=== PATIENT | male | born 1930 | race Caucasian/White ===

== ENCOUNTER 2019-04-13 18:58 | Inpatient (IN) ==
[2019-04-13 19:39] LABS: Basophils # 0.1 10*3/uL (0.0-0.2); Basophils % 0.5 % (0.0-0.8); Eosinophils % 0.4 % (0.00-10.9); Hematocrit 43.6 VOL% (42.0-52.0); Hemoglobin 14.6 GM/DL (14.0-18.0); Immature Granulocytes % 0.2 %; Immature Granulocytes Absolute 0.02 #; Lymphocytes % 10.7 % (21.2-54.2); Mean Corpuscular HGB Conc 33.5 GM/DL (32-36); Mean Corpuscular Volume 92.4 FL (87-102); Mean Platelet Volume 10.4 FL (9.6-12.0); Monocytes % 5.5 % (1.7-12.7); Neutrophils % 82.7 % (38.7-73.9); Platelet Count 211 T/CUMM (130-400); Red Blood Count 4.72 MC/CUMM (3.8-5.5); Red Cell Distribution Width 13.2 % (9.3-17.3); White Blood Count 9.3 T/CUMM (4-12)
[2019-04-13 19:53] LABS: INR 1.1; PT Patient Result 11.4 SECS (9.6-12.2)
[2019-04-13 20:03] LABS: Apearance,Urine CLEAR (Clear); Bilirubin,Urine Negative (Negative); Blood, Urine Small mg/dL (Negative); Glucose,Urine (UA) 150 mg/dL (Negative); Ketones,Urine 5 mg/dL (Negative); Mucus,Urine Occasional /LPF (Occasional); Nitrite,Urine Negative (Negative); Protein,Urine Negative; RBC,Urine 9 /HPF (0-4); Urine Color Yellow (Yellow); Urine Specific Gravity 1.014 (1.001-1.035); Urine Urobilinogen < 2.0 EU/DL (0.2-1.0); WBC,Urine <1 /HPF (0-6)
[2019-04-13 20:06] LABS: Albumin 3.8 G/DL (3.4-5.0); Bilirubin,Total 0.5 MG/DL (0.2-1.0); Calcium 9.2 MG/DL (8.5-10.1); Osmolality,Calculated 283.5 MOS/KG (273-304); Total Protein 7.5 G/DL (6.4-8.3)
[2019-04-13] MEDS ORDERED: MECLIZINE 25 MG TABLET PO STA (21:29)
[2019-04-13] MEDS ORDERED: hydrALAZINE 20 MG/1 ML VIAL IV STA (21:31)
[2019-04-13] MEDS ORDERED: PANTOPRAZOLE 40 MG VIAL IV ONE (23:04)
[2019-04-13] MEDS ORDERED: PANTOPRAZOLE 40 MG VIAL IV STA (23:04)
[2019-04-13] MEDS ORDERED: hydrALAZINE 20 MG/1 ML VIAL IV PRN (23:07)
[2019-04-13] MEDS ORDERED: SODIUM CHLORIDE 0.9% 500 ML IV ONE (23:07)
[2019-04-13] MEDS ORDERED: guaiFENesin/DM ER 600-30 MG TABLET PO PRN (23:07)
[2019-04-13] MEDS ORDERED: diphenhydrAMINE CAP 25 MG CAPSULE PO PRN (23:07)
[2019-04-13] MEDS ORDERED: ACETAMINOPHEN 325 MG TABLET PO PRN (23:07)
[2019-04-14] MEDS: ONDANSETRON 4 MG/2 ML VIAL IV PRN (01:29)
[2019-04-14 05:12] LABS: Albumin 2.9 G/DL (3.4-5.0); Bilirubin,Total 0.6 MG/DL (0.2-1.0); Calcium 8.8 MG/DL (8.5-10.1); Total Protein 6.4 G/DL (6.4-8.3)
[2019-04-14] MEDS: MECLIZINE 25 MG TABLET PO SCH ×3 (12:35→21:33)
[2019-04-14] MEDS ORDERED: methylPREDNISolone SOD SUC 125 MG/2 ML VIAL IV ONE (15:41)
[2019-04-14] MEDS: SODIUM CHLORIDE 0.9% 1,000 ML IV SCH (18:36)
[2019-04-14] MEDS ORDERED: DABIGATRAN 150 MG CAPSULE PO SCH (21:00)
[2019-04-15] MEDS: SODIUM CHLORIDE 0.9% 1,000 ML IV SCH ×2 (03:39→12:48)
[2019-04-15 05:31] LABS: Basophils % 0.1 % (0.0-0.8); Hematocrit 43.1 VOL% (42.0-52.0); Hemoglobin 13.8 GM/DL (14.0-18.0); Immature Granulocytes % 0.4 %; Immature Granulocytes Absolute 0.03 #; Lymphocytes # 0.5 10*3/uL (1.4-4.0); Lymphocytes % 6.8 % (21.2-54.2); Mean Corpuscular Volume 96.6 FL (87-102); Mean Platelet Volume 10.9 FL (9.6-12.0); Monocytes % 1.1 % (1.7-12.7); Neutrophils % 91.6 % (38.7-73.9); Platelet Count 194 T/CUMM (130-400); Red Blood Count 4.46 MC/CUMM (3.8-5.5); Red Cell Distribution Width 13.4 % (9.3-17.3); White Blood Count 7.6 T/CUMM (4-12)
[2019-04-15 05:51] LABS: Calcium 8.8 MG/DL (8.5-10.1); Osmolality,Calculated 284.4 MOS/KG (273-304)
[2019-04-15 06:57] LABS: Lymphocytes 9 % (20-55); Platelet Estimate Adequate; Segmented Neutrophils 89 % (50-85); Total Cells Counted 100
[2019-04-15 08:08] LABS: Risk Ratio 3.19; VLDL CHOLESTEROL 9.2 MG/DL
[2019-04-15] MEDS: CHOLECALCIFEROL 400 UNIT TABLET PO SCH (09:07)
[2019-04-15] MEDS: SELENIUM 200 MCG TABLET PO SCH (09:07)
[2019-04-15] MEDS: MECLIZINE 25 MG TABLET PO SCH ×4 (09:07→21:20)
[2019-04-15] MEDS: ASPIRIN EC 81 MG TABLET PO SCH (09:09)
[2019-04-15] MEDS: APIXABAN 5 MG TABLET PO SCH ×2 (09:09→21:20)
[2019-04-15] MEDS: AMIODARONE 200 MG TABLET PO SCH (09:09)
[2019-04-15] MEDS: lisinopriL 20 MG TABLET PO SCH (09:09)
[2019-04-15] MEDS: ASCORBIC ACID 500 MG TABLET PO SCH (09:10)
[2019-04-15] MEDS: ROSUVASTATIN 20 MG TABLET PO SCH (21:20)
[2019-04-16] MEDS: ONDANSETRON 4 MG/2 ML VIAL IV PRN ×2 (02:43→08:40)
[2019-04-16 05:32] LABS: Basophils # 0.1 10*3/uL (0.0-0.2); Basophils % 0.4 % (0.0-0.8); Eosinophils # 0.1 10*3/uL (0.0-0.87); Eosinophils % 0.4 % (0.00-10.9); Hematocrit 41.4 VOL% (42.0-52.0); Hemoglobin 13.1 GM/DL (14.0-18.0); Immature Granulocytes % 0.3 %; Immature Granulocytes Absolute 0.04 #; Lymphocytes # 1.7 10*3/uL (1.4-4.0); Lymphocytes % 13.4 % (21.2-54.2); Mean Corpuscular HGB Conc 31.6 GM/DL (32-36); Mean Platelet Volume 10.4 FL (9.6-12.0); Monocytes % 9.8 % (1.7-12.7); Neutrophils % 75.7 % (38.7-73.9); Platelet Count 226 T/CUMM (130-400); Red Blood Count 4.27 MC/CUMM (3.8-5.5); Red Cell Distribution Width 13.5 % (9.3-17.3); White Blood Count 12.8 T/CUMM (4-12)
[2019-04-16 05:49] LABS: Calcium 8.5 MG/DL (8.5-10.1); Osmolality,Calculated 286.4 MOS/KG (273-304)
[2019-04-16] MEDS: CHOLECALCIFEROL 400 UNIT TABLET PO SCH (08:42)
[2019-04-16] MEDS: ASCORBIC ACID 500 MG TABLET PO SCH ×2 (08:42→21:15)
[2019-04-16] MEDS: lisinopriL 20 MG TABLET PO SCH (08:43)
[2019-04-16] MEDS: AMIODARONE 200 MG TABLET PO SCH (08:43)
[2019-04-16] MEDS: APIXABAN 5 MG TABLET PO SCH ×2 (08:43→21:16)
[2019-04-16] MEDS: ASPIRIN EC 81 MG TABLET PO SCH (08:43)
[2019-04-16] MEDS: MECLIZINE 25 MG TABLET PO SCH ×4 (08:45→21:16)
[2019-04-16] MEDS: SELENIUM 200 MCG TABLET PO SCH (08:45)
[2019-04-16] MEDS ORDERED: ACETAMINOPHEN/CODEINE 120-12 MG/5 ML 12.5 ML UDCUP PO PRN (11:43)
[2019-04-16 16:06] LABS: Apearance,Urine CLEAR (Clear); Bilirubin,Urine Negative (Negative); Blood, Urine Negative (Negative); Glucose,Urine (UA) Negative (Negative); Hyaline Casts,Urine 1 /LPF (0-3); Ketones,Urine Negative (Negative); Mucus,Urine Occasional /LPF (Occasional); Nitrite,Urine Negative (Negative); Protein,Urine Negative; Squamous Epithelial Cell,Urine Occasional /HPF (0-10); Urine Color Yellow (Yellow); Urine Specific Gravity 1.016 (1.001-1.035); Urine Urobilinogen < 2.0 EU/DL (0.2-1.0); WBC,Urine 8 /HPF (0-6)
[2019-04-16] MEDS ORDERED: POTASSIUM CHLORIDE 20 MEQ TABLET PO ONE (20:28)
[2019-04-16] MEDS: ROSUVASTATIN 20 MG TABLET PO SCH (21:15)
[2019-04-17] MEDS: ASPIRIN EC 81 MG TABLET PO SCH (08:19)
[2019-04-17] MEDS: CHOLECALCIFEROL 400 UNIT TABLET PO SCH (08:19)
[2019-04-17] MEDS: lisinopriL 20 MG TABLET PO SCH (08:19)
[2019-04-17] MEDS: ASCORBIC ACID 500 MG TABLET PO SCH (08:20)
[2019-04-17] MEDS: APIXABAN 5 MG TABLET PO SCH (08:20)
[2019-04-17] MEDS: MECLIZINE 25 MG TABLET PO SCH ×3 (08:21→16:31)
[2019-04-17] MEDS: SELENIUM 200 MCG TABLET PO SCH (08:21)
[2019-04-17] MEDS: AMIODARONE 200 MG TABLET PO SCH (08:21)
[2019-04-17 08:46] LABS: Basophils % 0.3 % (0.0-0.8); Eosinophils # 0.1 10*3/uL (0.0-0.87); Eosinophils % 0.5 % (0.00-10.9); Hematocrit 42.4 VOL% (42.0-52.0); Hemoglobin 13.3 GM/DL (14.0-18.0); Immature Granulocytes % 0.6 %; Immature Granulocytes Absolute 0.08 #; Lymphocytes # 1.2 10*3/uL (1.4-4.0); Lymphocytes % 9.3 % (21.2-54.2); Mean Corpuscular HGB Conc 31.4 GM/DL (32-36); Mean Corpuscular Volume 97.2 FL (87-102); Mean Platelet Volume 10.1 FL (9.6-12.0); Monocytes % 9.3 % (1.7-12.7); Platelet Count 215 T/CUMM (130-400); Red Blood Count 4.36 MC/CUMM (3.8-5.5); Red Cell Distribution Width 13.2 % (9.3-17.3); White Blood Count 13.2 T/CUMM (4-12)
[2019-04-17 08:59] LABS: Calcium 8.3 MG/DL (8.5-10.1); Osmolality,Calculated 284.4 MOS/KG (273-304)
[2019-04-17] MEDS ORDERED: cefTRIAXone 1,000 MG in SYRINGE 1 EACH IV SCH (12:00)
[2019-04-17 16:10] VITALS: BP 117/54
== END 2019-04-17 17:55 | DRG 65 ==
LOC: EDUNIT# → N.ED 18:58 → N.EDINP 18:58 → N.TELES 22:52 → SUATTDRO 04-15 07:45
PROVIDERS: ADMIT Internal Medicine; ATTEND Internal Medicine

== ENCOUNTER 2019-04-19 13:43 | Observation (INO) ==
[2019-04-19 15:23] LABS: Apearance,Urine Slightly Hazy (Clear); Bilirubin,Urine Negative (Negative); Blood, Urine Small mg/dL (Negative); Glucose,Urine (UA) Negative (Negative); Hyaline Casts,Urine 36 /LPF (0-3); Ketones,Urine 5 mg/dL (Negative); Mucus,Urine Moderate /LPF (Occasional); Nitrite,Urine Negative (Negative); Protein,Urine Negative; RBC,Urine 28 /HPF (0-4); Squamous Epithelial Cell,Urine Occasional /HPF (0-10); Urine Color Dark Yellow (Yellow); WBC,Urine 9 /HPF (0-6)
[2019-04-19 15:49] LABS: Albumin 2.6 G/DL (3.4-5.0); Calcium 8.9 MG/DL (8.5-10.1); Osmolality,Calculated 288.5 MOS/KG (273-304); Total Protein 6.4 G/DL (6.4-8.3)
[2019-04-19] MEDS ORDERED: ACETAMINOPHEN 325 MG TABLET PO PRN (16:27)
[2019-04-19] MEDS ORDERED: ONDANSETRON 4 MG/2 ML VIAL IV PRN (16:27)
[2019-04-19] MEDS: SIMVASTATIN 20 MG TABLET PO SCH (20:39)
[2019-04-19] MEDS: APIXABAN 5 MG TABLET PO SCH (20:39)
[2019-04-20 05:03] LABS: Basophils % 0.3 % (0.0-0.8); Eosinophils # 0.1 10*3/uL (0.0-0.87); Hematocrit 34.9 VOL% (42.0-52.0); Hemoglobin 11.5 GM/DL (14.0-18.0); Immature Granulocytes % 0.4 %; Immature Granulocytes Absolute 0.04 #; Lymphocytes # 0.8 10*3/uL (1.4-4.0); Lymphocytes % 8.3 % (21.2-54.2); Mean Corpuscular Volume 94.6 FL (87-102); Mean Platelet Volume 10.6 FL (9.6-12.0); Platelet Count 218 T/CUMM (130-400); Red Blood Count 3.69 MC/CUMM (3.8-5.5); Red Cell Distribution Width 13.1 % (9.3-17.3)
[2019-04-20 05:38] LABS: Albumin 2.4 G/DL (3.4-5.0); Bilirubin,Total 1.5 MG/DL (0.2-1.0); Calcium 8.7 MG/DL (8.5-10.1); Osmolality,Calculated 292.1 MOS/KG (273-304); Total Protein 5.9 G/DL (6.4-8.3)
[2019-04-20] MEDS: cefTRIAXone 1,000 MG in SYRINGE 1 EACH IV SCH (10:16)
[2019-04-20] MEDS: lisinopriL 20 MG TABLET PO SCH (10:20)
[2019-04-20] MEDS: PANTOPRAZOLE 40 MG TABLET PO SCH (10:20)
[2019-04-20] MEDS: AMIODARONE 200 MG TABLET PO SCH (10:20)
[2019-04-20] MEDS: SPIRONOLACTONE 25 MG TABLET PO SCH (10:20)
[2019-04-20] MEDS: APIXABAN 5 MG TABLET PO SCH ×2 (10:20→20:25)
[2019-04-20] MEDS: ASPIRIN EC 81 MG TABLET PO SCH (10:20)
[2019-04-20] MEDS: SELENIUM 200 MCG TABLET PO SCH (10:20)
[2019-04-20] MEDS: CHOLECALCIFEROL 400 UNIT TABLET PO SCH (10:21)
[2019-04-20] MEDS: ASCORBIC ACID 500 MG TABLET PO SCH (10:21)
[2019-04-20] MEDS: SIMVASTATIN 20 MG TABLET PO SCH (20:26)
[2019-04-21 04:37] LABS: Basophils # 0.1 10*3/uL (0.0-0.2); Basophils % 0.5 % (0.0-0.8); Eosinophils # 0.2 10*3/uL (0.0-0.87); Eosinophils % 1.9 % (0.00-10.9); Hematocrit 40.7 VOL% (42.0-52.0); Hemoglobin 12.9 GM/DL (14.0-18.0); Immature Granulocytes % 0.5 %; Immature Granulocytes Absolute 0.05 #; Lymphocytes # 1.5 10*3/uL (1.4-4.0); Lymphocytes % 13.3 % (21.2-54.2); Mean Corpuscular HGB Conc 31.7 GM/DL (32-36); Mean Corpuscular Volume 97.1 FL (87-102); Mean Platelet Volume 10.4 FL (9.6-12.0); Monocytes % 13.4 % (1.7-12.7); Neutrophils % 70.4 % (38.7-73.9); Platelet Count 264 T/CUMM (130-400); Red Blood Count 4.19 MC/CUMM (3.8-5.5); Red Cell Distribution Width 13.2 % (9.3-17.3); White Blood Count 11.1 T/CUMM (4-12)
[2019-04-21 05:14] LABS: Albumin 2.8 G/DL (3.4-5.0); Bilirubin,Total 1.7 MG/DL (0.2-1.0); Osmolality,Calculated 289.1 MOS/KG (273-304); Total Protein 6.7 G/DL (6.4-8.3)
[2019-04-21] MEDS: ASCORBIC ACID 500 MG TABLET PO SCH (09:37)
[2019-04-21] MEDS: lisinopriL 20 MG TABLET PO SCH (09:37)
[2019-04-21] MEDS: SELENIUM 200 MCG TABLET PO SCH (09:37)
[2019-04-21] MEDS: APIXABAN 5 MG TABLET PO SCH ×2 (09:37→20:55)
[2019-04-21] MEDS: AMIODARONE 200 MG TABLET PO SCH (09:38)
[2019-04-21] MEDS: CHOLECALCIFEROL 400 UNIT TABLET PO SCH (09:38)
[2019-04-21] MEDS: PANTOPRAZOLE 40 MG TABLET PO SCH (09:38)
[2019-04-21] MEDS: SPIRONOLACTONE 25 MG TABLET PO SCH (09:38)
[2019-04-21] MEDS: cefTRIAXone 1,000 MG in SYRINGE 1 EACH IV SCH (09:38)
[2019-04-21] MEDS: ASPIRIN EC 81 MG TABLET PO SCH (09:38)
[2019-04-21] MEDS: SIMVASTATIN 20 MG TABLET PO SCH (20:55)
[2019-04-22 04:20] LABS: Osmolality,Calculated 288.3 MOS/KG (273-304)
[2019-04-22] MEDS: SPIRONOLACTONE 25 MG TABLET PO SCH (09:48)
[2019-04-22] MEDS: ASPIRIN EC 81 MG TABLET PO SCH (09:48)
[2019-04-22] MEDS: lisinopriL 20 MG TABLET PO SCH (09:48)
[2019-04-22] MEDS: SELENIUM 200 MCG TABLET PO SCH (09:48)
[2019-04-22] MEDS: PANTOPRAZOLE 40 MG TABLET PO SCH (09:49)
[2019-04-22] MEDS: POTASSIUM CHLORIDE 20 MEQ TABLET PO PRN ×5 (09:49→22:22)
[2019-04-22] MEDS: AMIODARONE 200 MG TABLET PO SCH (09:50)
[2019-04-22] MEDS: APIXABAN 5 MG TABLET PO SCH ×2 (09:50→20:22)
[2019-04-22] MEDS: cefTRIAXone 1,000 MG in SYRINGE 1 EACH IV SCH (09:50)
[2019-04-22] MEDS: CHOLECALCIFEROL 400 UNIT TABLET PO SCH (09:59)
[2019-04-22] MEDS: ASCORBIC ACID 500 MG TABLET PO SCH (09:59)
[2019-04-22] MEDS: POLYETHYLENE GLYCOL POWDER 17 GM PACK PO SCH ×2 (17:18→17:51)
[2019-04-22] MEDS ORDERED: LORazepam 2 MG/1 ML VIAL IM ONE (17:35)
[2019-04-22] MEDS ORDERED: HALOPERIDOL 5 MG/ML AMP IM ONE (17:35)
[2019-04-22] MEDS: SIMVASTATIN 20 MG TABLET PO SCH (20:22)
[2019-04-23] MEDS: CHOLECALCIFEROL 400 UNIT TABLET PO SCH (08:27)
[2019-04-23] MEDS: APIXABAN 5 MG TABLET PO SCH ×2 (08:27→20:35)
[2019-04-23] MEDS: PANTOPRAZOLE 40 MG TABLET PO SCH (08:27)
[2019-04-23] MEDS: AMIODARONE 200 MG TABLET PO SCH (08:27)
[2019-04-23] MEDS: SPIRONOLACTONE 25 MG TABLET PO SCH (08:27)
[2019-04-23] MEDS: ASCORBIC ACID 500 MG TABLET PO SCH (08:27)
[2019-04-23] MEDS: lisinopriL 20 MG TABLET PO SCH (08:27)
[2019-04-23] MEDS: ASPIRIN EC 81 MG TABLET PO SCH (08:27)
[2019-04-23] MEDS: SELENIUM 200 MCG TABLET PO SCH (08:27)
[2019-04-23] MEDS: cefTRIAXone 1,000 MG in SYRINGE 1 EACH IV SCH (08:28)
[2019-04-23] MEDS ORDERED: LORazepam 2 MG/1 ML VIAL IV ONE (09:00)
[2019-04-23] MEDS ORDERED: HALOPERIDOL 5 MG/ML AMP IM ONE (09:03)
[2019-04-23] MEDS ORDERED: LORazepam 2 MG/1 ML VIAL IM ONE (09:04)
[2019-04-23] MEDS: POLYETHYLENE GLYCOL POWDER 17 GM PACK PO SCH (09:30)
[2019-04-23] MEDS: SIMVASTATIN 20 MG TABLET PO SCH (20:35)
[2019-04-23] MEDS: QUEtiapine 25 MG TABLET PO SCH (20:35)
[2019-04-24] MEDS: cefTRIAXone 1,000 MG in SYRINGE 1 EACH IV SCH (08:40)
[2019-04-24] MEDS: CHOLECALCIFEROL 400 UNIT TABLET PO SCH (08:42)
[2019-04-24] MEDS: PANTOPRAZOLE 40 MG TABLET PO SCH (08:43)
[2019-04-24] MEDS: ASPIRIN EC 81 MG TABLET PO SCH (08:43)
[2019-04-24] MEDS: ASCORBIC ACID 500 MG TABLET PO SCH (08:43)
[2019-04-24] MEDS: lisinopriL 20 MG TABLET PO SCH (08:43)
[2019-04-24] MEDS: APIXABAN 5 MG TABLET PO SCH ×2 (08:43→21:43)
[2019-04-24] MEDS: SPIRONOLACTONE 25 MG TABLET PO SCH (08:43)
[2019-04-24] MEDS: SELENIUM 200 MCG TABLET PO SCH (08:43)
[2019-04-24] MEDS: AMIODARONE 200 MG TABLET PO SCH (08:43)
[2019-04-24] MEDS: POLYETHYLENE GLYCOL POWDER 17 GM PACK PO SCH (08:44)
[2019-04-24] MEDS: QUEtiapine 25 MG TABLET PO SCH ×2 (08:44→21:43)
[2019-04-24] MEDS ORDERED: TUBERCULIN SKIN TEST 0.1 ML SYRINGE INTRADERM ONE (16:14)
[2019-04-24] MEDS: SIMVASTATIN 20 MG TABLET PO SCH (21:43)
[2019-04-25] MEDS: cefTRIAXone 1,000 MG in SYRINGE 1 EACH IV SCH (09:44)
[2019-04-25] MEDS: ASCORBIC ACID 500 MG TABLET PO SCH (12:51)
[2019-04-25] MEDS: lisinopriL 20 MG TABLET PO SCH (12:51)
[2019-04-25] MEDS: APIXABAN 5 MG TABLET PO SCH ×2 (12:51→20:53)
[2019-04-25] MEDS: SELENIUM 200 MCG TABLET PO SCH (12:51)
[2019-04-25] MEDS: ASPIRIN EC 81 MG TABLET PO SCH (12:52)
[2019-04-25] MEDS: QUEtiapine 25 MG TABLET PO SCH ×2 (12:52→20:52)
[2019-04-25] MEDS: CHOLECALCIFEROL 400 UNIT TABLET PO SCH (12:52)
[2019-04-25] MEDS: AMIODARONE 200 MG TABLET PO SCH (12:53)
[2019-04-25] MEDS: SPIRONOLACTONE 25 MG TABLET PO SCH (12:53)
[2019-04-25] MEDS: POLYETHYLENE GLYCOL POWDER 17 GM PACK PO SCH (12:54)
[2019-04-25] MEDS: PANTOPRAZOLE 40 MG TABLET PO SCH (12:55)
[2019-04-25] MEDS: SIMVASTATIN 20 MG TABLET PO SCH (20:52)
[2019-04-26] MEDS: AMIODARONE 200 MG TABLET PO SCH (10:03)
[2019-04-26] MEDS: ASCORBIC ACID 500 MG TABLET PO SCH (10:03)
[2019-04-26] MEDS: PANTOPRAZOLE 40 MG TABLET PO SCH (10:03)
[2019-04-26] MEDS: SELENIUM 200 MCG TABLET PO SCH (10:03)
[2019-04-26] MEDS: APIXABAN 5 MG TABLET PO SCH (10:03)
[2019-04-26] MEDS: ASPIRIN EC 81 MG TABLET PO SCH (10:03)
[2019-04-26] MEDS: SPIRONOLACTONE 25 MG TABLET PO SCH (10:04)
[2019-04-26] MEDS: lisinopriL 20 MG TABLET PO SCH (10:04)
[2019-04-26] MEDS: cefTRIAXone 1,000 MG in SYRINGE 1 EACH IV SCH (10:04)
[2019-04-26] MEDS: CHOLECALCIFEROL 400 UNIT TABLET PO SCH (10:04)
[2019-04-26] MEDS: QUEtiapine 25 MG TABLET PO SCH (10:04)
[2019-04-26] MEDS: POLYETHYLENE GLYCOL POWDER 17 GM PACK PO SCH (10:05)
[2019-04-26 12:08] VITALS: BP 109/56
== END 2019-04-26 14:20 ==
LOC: EDUNIT# → N.EDINP 13:43 → N.ED 13:43 → SUATTDRO 16:22 → N.EDINP 18:59 → N.4E 19:04
PROVIDERS: ADMIT Internal Medicine; ATTEND Internal Medicine Geriatric Medicine